=== PATIENT | female | born 1975 | race Two or more races ===

== ENCOUNTER 2017-06-29 06:36 | Emergency (ER) | payer BC ==
[~2017-06-29] VITALS: Ht 152.4 cm; Wt 49.9 kg
[2017-06-29] MEDS ORDERED: TUSSI PRES-B L120 M1 PO (11:48)
[2017-06-29] MEDS ORDERED: ZITHROMAX TRI-500 MG PO (11:48)
[2017-06-29] MEDS ORDERED: PROAIR HFA8.5 GM IH (11:48)
== END 2017-06-29 12:07 | disposition home or self-care (01) ==
LOC: ER 06:36
DX: B34.9 Viral infection, unspecified (principal)